=== PATIENT | female | born 1965 | race Two or more races ===

== ENCOUNTER 2017-02-20 17:06 | Emergency (ER) | payer OTHER ==
[~2017-02-20] VITALS: Ht 157.5 cm; Wt 68.0 kg
[2017-02-20 17:16] VITALS: BP 139/83
== END 2017-02-20 19:07 | disposition home or self-care (01) ==
LOC: ER 17:12
DX: K04.7 Periapical abscess without sinus (principal)

== ENCOUNTER 2023-11-06 02:20 | Emergency (ER) | payer OTHER ==
[~2023-11-06] VITALS: Ht 157.5 cm; Wt 63.0 kg
[2023-11-06 02:20] VITALS: BP 136/76; PULSE 78; RESP 20; TEMP 98; O2SAT 98
[2023-11-06] MEDS ORDERED: METH4PAK PO (03:35)
[2023-11-06] MEDS ORDERED: IBUP-1456 PO (03:35)
[2023-11-06] MEDS: DexAMETHasone SOD PHOS 10MG/1ML VIAL INJ IM ONE (03:45)
[2023-11-06] MEDS: KETOROLAC TROMETH 60MG/2ML VIAL IM ONE (03:46)
== END 2023-11-06 04:15 | disposition home or self-care (01) ==
LOC: ER 02:20
DX: M77.8 Other enthesopathies, not elsewhere classified (principal); M25.512 Pain in left shoulder
CPT/HCPCS: 73030; 96372; 99284; J1100; J1885